=== PATIENT | female | born 1990 | race Hispanic/Latino ===

== ENCOUNTER 2019-12-10 15:18 | Inpatient (IN) | payer MEDICAID, OTHER ==
[~2019-12-10] VITALS: Ht 154.9 cm; Wt 54.0 kg
[~2019-12-10 15:18] MED LIST: PREN-196 PO; TYL3 PO
[2019-12-10] MEDS ORDERED: ONDANSETRON HCL 4 MG/2 ML VIAL ONE (16:04)
[2019-12-10 16:18] LABS: BASOPHILS % (AUTO) 0.2 % (0.0-5.0); MEAN CORPUSCULAR HEMOGLOBIN 29.5 pg (27.0-33.0); MEAN CORPUSCULAR HGB CONC 33.4 g/dL (32.0-36.0); MEAN CORPUSCULAR VOLUME 88.2 fL (79-99); MONOCYTES % (AUTO) 3.2 % (3.0-13.0); NEUTROPHILS % (AUTO) 91.2 % (40.0-77.0); PLATELET COUNT (AUTO) 282 K/uL (130-400); RED BLOOD CELL COUNT(AUTO) 3.97 MIL/uL (4.00-5.50); RED CELL DISTRIBUTION WIDTH 13.1 % (11.0-15.5); WHITE BLOOD COUNT (AUTO) 25.2 K/uL (4.8-10.8)
[2019-12-10 16:20] LABS: CREATININE 0.6 mg/dL (0.5-1.5); POTASSIUM 3.3 mmol/L (3.5-5.1)
[2019-12-10 16:24] LABS: BILIRUBIN,TOTAL 2.2 mg/dL (0.2-1.0); TOTAL PROTEIN, SERUM 7.7 g/dL (6.0-8.3)
[2019-12-10 16:29] LABS: APPEARANCE,URINE CLEAR (CLEAR); BILIRUBIN,URINE SMALL (NEGATIVE); COLOR,URINE YELLOW (YELLOW); GLUCOSE, URINE (UA) NEGATIVE (NEGATIVE); KETONES,URINE 5 mg/dL (NEGATIVE); LEUKOCYTE ESTERASE ,URINE NEGATIVE (NEGATIVE); NITRATE,URINE NEGATIVE (NEGATIVE); OCCULT BLOOD,URINE SMALL (NEGATIVE); PROTEIN,URINE TRACE mg/dL (NEGATIVE)
[2019-12-10] MEDS ORDERED: MORPHINE SULFATE 4 MG/1ML SYG ONE (16:35)
[2019-12-10 16:39] LABS: BACTERIA,URINE Few /HPF (None Seen); MUCUS,URINE Moderate LPF (None Seen); SQUAMOUS EPITHELIAL CELL,UR Few /HPF (0-2); WBC,URINE 0-1 /HPF (0-1)
[2019-12-10] MEDS ORDERED: KETOROLAC TROMETHAMINE 30MG/ML ONE (16:43)
[2019-12-10] MEDS ORDERED: IOHEXOL-350 75 ML VIAL IV ONE (16:49)
[2019-12-10] MEDS ORDERED: DICYCLOMINE HCL 10 MG/ML 2ML AMP IM ONE (17:48)
[2019-12-10] MEDS ORDERED: VANCOMYCIN 1GM+NS 250ML 250 ML IV ONE (18:57)
[2019-12-10] MEDS ORDERED: ZOSYN 3.375GM+NS 50ML 50 ML IV ONE (18:57)
[2019-12-10] MEDS ORDERED: DiphenhydrAMINE HCL 50 MG/ML VIAL ONE (20:14)
[2019-12-10 21:00] VITALS: BP 128/66
[2019-12-10] MEDS: DEXTROSE 5%-LACTATED RINGERS 1,000 ML IV SCH (22:31)
[2019-12-10] MEDS: MEPERIDINE-PF 25 MG/ML SYG IM PRN (23:02)
[2019-12-10] MEDS: PROMETHAZINE HCL 25 MG/ML 1ML AMPULE IM PRN (23:02)
[2019-12-10 23:30] VITALS: BP 96/48
[2019-12-11] MEDS: ZOSYN 3.375GM+NS 50ML 50 ML IV SCH ×4 (00:14→17:45)
[2019-12-11 03:29] VITALS: BP 96/59
[2019-12-11] MEDS: DEXTROSE 5%-LACTATED RINGERS 1,000 ML IV SCH ×3 (06:08→22:13)
[2019-12-11 06:41] LABS: BASOPHILS % (AUTO) 0.3 % (0.0-5.0); EOSINOPHILS % (AUTO) 1.3 % (0.0-8.0); HEMATOCRIT 28.1 % (36-48); LYMPHOCYTES % (AUTO) 14.9 % (21.0-51.0); MEAN CORPUSCULAR HEMOGLOBIN 29.3 pg (27.0-33.0); MEAN CORPUSCULAR HGB CONC 32.4 g/dL (32.0-36.0); MEAN CORPUSCULAR VOLUME 90.4 fL (79-99); MONOCYTES % (AUTO) 6.9 % (3.0-13.0); NEUTROPHILS % (AUTO) 76.2 % (40.0-77.0); PLATELET COUNT (AUTO) 195 K/uL (130-400); RED BLOOD CELL COUNT(AUTO) 3.11 MIL/uL (4.00-5.50); RED CELL DISTRIBUTION WIDTH 13.6 % (11.0-15.5); WHITE BLOOD COUNT (AUTO) 11.1 K/uL (4.8-10.8)
[2019-12-11] MEDS: PROMETHAZINE HCL 25 MG/ML 1ML AMPULE IM PRN ×3 (06:45→20:31)
[2019-12-11] MEDS: MEPERIDINE-PF 25 MG/ML SYG IM PRN ×3 (06:46→20:32)
[2019-12-11 07:45] VITALS: BP 94/54
[2019-12-11] MEDS: DOXYCYCLINE HYCLATE 100 MG TABLET PO SCH ×2 (10:21→21:28)
[2019-12-11 11:10] VITALS: BP 115/81
[2019-12-11 16:49] VITALS: BP 113/58
[2019-12-11 19:37] VITALS: BP 112/61
[2019-12-11 23:12] VITALS: BP 121/53
[2019-12-12] MEDS: DEXTROSE 5%-LACTATED RINGERS 1,000 ML IV SCH ×3 (00:25→12:18)
[2019-12-12] MEDS: ZOSYN 3.375GM+NS 50ML 50 ML IV SCH ×4 (00:37→17:48)
[2019-12-12 03:13] VITALS: BP 104/56
[2019-12-12] MEDS: PROMETHAZINE HCL 25 MG/ML 1ML AMPULE IM PRN (05:08)
[2019-12-12] MEDS: MEPERIDINE-PF 25 MG/ML SYG IM PRN (05:09)
[2019-12-12 07:28] VITALS: BP 106/51
[2019-12-12] MEDS: DOXYCYCLINE HYCLATE 100 MG TABLET PO SCH ×2 (08:12→20:56)
[2019-12-12 11:28] VITALS: BP 107/53
[2019-12-12 17:15] VITALS: BP 126/56
[2019-12-12] MEDS: ACETAMINOPHEN-CODEINE 300/30MG TAB PO PRN (18:19)
[2019-12-12 19:34] VITALS: BP 122/58
[2019-12-12 23:56] VITALS: BP 114/56
[2019-12-13 03:23] VITALS: BP 106/66
[2019-12-13] MEDS: ACETAMINOPHEN-CODEINE 300/30MG TAB PO PRN (05:22)
[2019-12-13] MEDS: ZOSYN 3.375GM+NS 50ML 50 ML IV SCH ×2 (05:39)
[2019-12-13 06:45] LABS: BASOPHILS % (AUTO) 0.3 % (0.0-5.0); EOSINOPHILS % (AUTO) 1.2 % (0.0-8.0); HEMATOCRIT 28.6 % (36-48); LYMPHOCYTES % (AUTO) 36.5 % (21.0-51.0); MEAN CORPUSCULAR HEMOGLOBIN 29.3 pg (27.0-33.0); MEAN CORPUSCULAR HGB CONC 32.2 g/dL (32.0-36.0); MEAN CORPUSCULAR VOLUME 91.1 fL (79-99); MONOCYTES % (AUTO) 7.3 % (3.0-13.0); NEUTROPHILS % (AUTO) 54.5 % (40.0-77.0); PLATELET COUNT (AUTO) 230 K/uL (130-400); RED BLOOD CELL COUNT(AUTO) 3.14 MIL/uL (4.00-5.50); RED CELL DISTRIBUTION WIDTH 12.9 % (11.0-15.5); WHITE BLOOD COUNT (AUTO) 5.9 K/uL (4.8-10.8)
[2019-12-13 07:30] VITALS: BP 101/58
[2019-12-13] MEDS: DOXYCYCLINE HYCLATE 100 MG TABLET PO SCH (08:31)
== END 2019-12-13 11:00 | disposition home or self-care (01) | DRG 759 ==
LOC: EDH 15:18 → OBSVTOIN 15:19 → EDHIP 15:19 → WSH 20:50
PROVIDERS: ADMIT Specialist; ATTEND Specialist
DX: N73.9 Female pelvic inflammatory disease, unspecified (principal); Z97.5 Presence of (intrauterine) contraceptive device; Z98.82 Breast implant status
CPT/HCPCS: 36415; 74177; 76705; 76856; 80053; 81001; 81025; 83690; 85025; 87040; 87070; 87076; 87077; 87186; 87486; 87797; G0378; J0500; J1200; J1885; J2175; J2270; J2405; J2543; J2550; J3370; Q9967